=== PATIENT | female | born 1945 | race Caucasian/White ===

== ENCOUNTER 2017-12-28 10:54 | Emergency (ER) | payer MEDICARE, OTHER ==
[~2017-12-28] VITALS: Ht 162.6 cm; Wt 61.2 kg
[~2017-12-28 10:54] MED LIST: ACET325 PO; ASCO500 PO; CODLIVC PO; Calcium 500 MG1 EACH PO; DIPH50 PO; DOCU100 PO; NATOKINASE; OXYACE5T PO; OXYC5 PO; PROM25 PO; Vitamin B Comple1 EA PO; XARELTO10 MG PO
[2017-12-28 11:58] LABS: Source, Urine Voided
[2017-12-28 12:01] LABS: Bilirubin, Urine Neg (Neg); Blood, Urine Neg (Neg); Glucose Qualitative, Urine Neg (Neg); Ketones, Urine Neg (Neg); Leukocyte Esterase, Urine Neg (Neg); Nitrite, Urine Neg (Neg); Protein, Urine Neg (Neg); Urobilinogen, Urine NORM (Normal)
[2017-12-28 12:06] LABS: BASOPHILS ABSOLUTE AUTO 0.03 K/mm3 (0.00-0.23); BASOPHILS PERCENT AUTO 1 % (0-2); EOSINOPHILS ABSOLUTE AUTO 0.11 K/mm3 (0.00-0.68); EOSINOPHILS PERCENT AUTO 2 % (0-6); Hematocrit 36.4 % (33.0-51.0); IMMATURE GRAN ABSOLUTE AUTO 0.01 K/mm3 (0.00-0.10); IMMATURE GRAN PERCENT AUTO 0 % (0-1); LYMPHOCYTES ABSOLUTE AUTO 2.01 K/mm3 (0.84-5.20); LYMPHOCYTES PERCENT AUTO 40 % (21-46); MONOCYTES ABSOLUTE AUTO 0.43 K/mm3 (0.16-1.47); MONOCYTES PERCENT AUTO 8 % (4-13); Mean Corpuscular HGB 30.3 pg (26.0-34.0); Mean Corpuscular Volume 92 fL (80-100); NEUTROPHILS PERCENT AUTO 49 % (41-73); Platelet Count 238 K/mm3 (150-400); RDW Coefficient Variation 12.7 % (11.7-14.2); RDW Standard Deviation 43.2 fL (35.1-46.3); Red Blood Cell Count 3.96 M/mm3 (3.80-5.20); White Blood Cell Count 5.09 K/mm3 (4.00-11.30)
[2017-12-28 12:15] LABS: Color, Urine Yellow (P-Yellow)
[2017-12-28 12:16] LABS: Appearance, Urine Clear (Clear)
[2017-12-28 12:20] LABS: Alanine Aminotransfer (ALT/SGP 12 U/L (12-78); Albumin, Blood 2.9 g/dL (3.4-5.0); Albumin/Globulin Ratio 0.6 (0.8-1.8); Alk Phos 101 U/L (50-136); Anion Gap 7 mmol/L (6-16); Aspartate Aminotrans (AST/SGOT 19 U/L (12-37); Bilirubin, Total 0.6 mg/dL (0.1-1.0); Blood Urea Nitrogen 12 mg/dL (8-24); Bun/Creatinine Ratio 19.6 (12.0-20.0); CO2, Blood 26 mmol/L (21-32); Calcium, Blood 9.1 mg/dL (8.5-10.1); Chloride, Blood 106 mmol/L (98-108); Creatinine, Blood 0.61 mg/dL (0.40-1.00); Globulin, Blood 4.7 g/dL (2.2-4.0); Glomerular Filtration Rate >60 (60-); Glucose, Blood 84 mg/dL (70-99); Potassium, Blood 3.8 mmol/L (3.5-5.5); Sodium, Blood 139 mmol/L (136-145); Total Protein, Blood 7.6 g/dL (6.4-8.2)
[2017-12-28] MEDS ORDERED: Norco 5-325 Ta1 EACH PO (13:58)
== END 2017-12-28 14:14 | disposition home or self-care (01) ==
LOC: ER 10:54
PROVIDERS: Emergency Medicine
DX: M47.896 Other spondylosis, lumbar region (principal); Z88.5 Allergy status to narcotic agent; Z79.899 Other long term (current) drug therapy; F17.200 Nicotine dependence, unspecified, uncomplicated
CPT/HCPCS: 36415; 72100; 80053; 81003; 85025; 99283-25

== ENCOUNTER 2018-08-18 15:50 | Inpatient (IN) | payer MEDICARE, OTHER ==
[~2018-08-18] VITALS: Ht 177.8 cm; Wt 65.6 kg
[~2018-08-18 15:50] MED LIST changes: +Norco 5-325 Ta1 EACH PO
[2018-08-18 17:00] LABS: BASOPHILS ABSOLUTE AUTO 0.01 K/mm3 (0.00-0.23); BASOPHILS PERCENT AUTO 0 % (0-2); EOSINOPHILS PERCENT AUTO 0 % (0-6); Hematocrit 36.5 % (33.0-51.0); Hemoglobin 11.5 g/dL (11.5-16.0); IMMATURE GRAN ABSOLUTE AUTO 0.01 K/mm3 (0.00-0.10); IMMATURE GRAN PERCENT AUTO 0 % (0-1); LYMPHOCYTES ABSOLUTE AUTO 0.76 K/mm3 (0.84-5.20); LYMPHOCYTES PERCENT AUTO 11 % (21-46); MONOCYTES ABSOLUTE AUTO 0.48 K/mm3 (0.16-1.47); MONOCYTES PERCENT AUTO 7 % (4-13); Mean Corpuscular HGB 30.7 pg (26.0-34.0); Mean Corpuscular HGB Conc 31.5 g/dL (31.5-36.5); Mean Corpuscular Volume 97 fL (80-100); NEUTROPHILS ABSOLUTE AUTO 6.01 K/mm3 (1.96-9.15); NEUTROPHILS PERCENT AUTO 83 % (41-73); Platelet Count 212 K/mm3 (150-400); RDW Standard Deviation 46.5 fL (35.1-46.3); Red Blood Cell Count 3.75 M/mm3 (3.80-5.20); White Blood Cell Count 7.27 K/mm3 (4.00-11.30)
[2018-08-18] MEDS ORDERED: TRAM50 PO (17:14)
[2018-08-18] MEDS ORDERED: NORT25 PO (17:14)
[2018-08-18] MEDS ORDERED: Forteo2.4 ML SQ (17:14)
[2018-08-18 17:34] LABS: Alanine Aminotransfer (ALT/SGP 16 U/L (12-78); Albumin, Blood 3.1 g/dL (3.4-5.0); Albumin/Globulin Ratio 0.6 (0.8-1.8); Alk Phos 84 U/L (50-136); Anion Gap 7 mmol/L (6-16); Aspartate Aminotrans (AST/SGOT 20 U/L (12-37); Bilirubin, Total 0.6 mg/dL (0.1-1.0); Blood Urea Nitrogen 19 mg/dL (8-24); Bun/Creatinine Ratio 28.8 (12.0-20.0); CO2, Blood 28 mmol/L (21-32); Calcium, Blood 8.8 mg/dL (8.5-10.1); Chloride, Blood 102 mmol/L (98-108); Creatinine, Blood 0.66 mg/dL (0.40-1.00); Globulin, Blood 5.1 g/dL (2.2-4.0); Glomerular Filtration Rate >60 (60-); Glucose, Blood 143 mg/dL (70-99); Potassium, Blood 3.8 mmol/L (3.5-5.5); Sodium, Blood 137 mmol/L (136-145); Total Protein, Blood 8.2 g/dL (6.4-8.2); Troponin I 0.156 ng/mL (0.000-0.040)
[2018-08-18] MEDS ORDERED: VITAMIN D50000 UNIT PO (19:08)
[2018-08-18] MEDS ORDERED: Hair, Skin & N1 EACH PO (19:08)
[2018-08-18] MEDS ORDERED: Melatonin5 M1 PO (19:08)
--- NOTE | 2018-08-18 22:15 | NUR ---
PT ARRIVAL. PT IS ADMITTED DUE TO RESP FAILURE W/HYPOXIA, SHE IS ON 4 L NC AT 96%. PT ARRIVED ON UNIT AT 2202 VIA GURNEY, PT WAS ABLE TO SELF TRANSFER FROM GURNEY TO BED, HOWEVER, THIS CAUSED HER RESPIRATORY DISTRESS, IT IS UNKNOWN IF HER O2 STATS DROPPED BUT HER RESPIRATION RATE INCREASED, ACCESSORY MUSCLES WERE USED, SHE BECAME PALE AND STARTED TO PURSE LIP BREATH. O2 WAS INCREASED AND PT RECOVERED WELL. TELE WAS PLACED, NSR IN THE 80'S PER [employer] WORK[employer], PT'S BP 150/72. PT HAS 1+ EDEMA TO HER BILATERAL FEET, GILMA HOSE PER ORDERS PLACED. L/S DIM T/O AND COARSE IN THE BASES. RR 24, EVEN AND SLIGHTLY LABORED. BT PRESENT AND HYPOACTIVE, ABD IS SOFT AND NONTENDER TO PALP. PT'S SKIN IS C/D/I. PT HAS OCC INCONT OF BLADDER. PT STATES THAT SHE USES O2 AT HOME THAT SHE BUYS FROM [employer], SHE SAID SHE HAS BEEN OUT OF IT LATELY BECAUSE SHE CANNOT BUY ANY CANNULAS W/O A ORDER. PT STATES THAT SHE DOES NOT HAVE A PCP DUE TO "NOT BEING ABLE TO FIND ONE THAT TAKES MEDICARE." BUT SHE SEES A RHUMATOLOGIST IN [place]. SHE SAID SHE HAS NEVER HAD A DOCTOR TELL HER SHE NEEDS O2 BUT SHE FEELS BETTER WHEN SHE USES IT.
[2018-08-19 00:10] LABS: Source, Urine Clean Catch
[2018-08-19 00:24] LABS: Bilirubin, Urine Neg (Neg); Blood, Urine 1+ (Neg); Glucose Qualitative, Urine Neg (Neg); Ketones, Urine 1+ (Neg); Leukocyte Esterase, Urine 3+ (Neg); Nitrite, Urine Pos (Neg); Protein, Urine 2+ (Neg); Specific Gravity, Urine 1.025 (1.003-1.022); Urobilinogen, Urine NORM (Normal)
[2018-08-19 00:33] LABS: Appearance, Urine Hazy (Clear); Color, Urine Yellow (P-Yellow)
[2018-08-19 00:34] LABS: Bacteria Many /hpf; Red Blood Cells, Urine 0-2 /hpf (0-2); Squamous Epithelial Cells Mod /hpf (Few); White Blood Cells, Urine TNTC /hpf (0-5)
[2018-08-19 04:13] LABS: BASOPHILS ABSOLUTE AUTO 0.01 K/mm3 (0.00-0.23); BASOPHILS PERCENT AUTO 0 % (0-2); EOSINOPHILS PERCENT AUTO 0 % (0-6); Hematocrit 36.1 % (33.0-51.0); IMMATURE GRAN ABSOLUTE AUTO 0.01 K/mm3 (0.00-0.10); IMMATURE GRAN PERCENT AUTO 0 % (0-1); LYMPHOCYTES ABSOLUTE AUTO 0.54 K/mm3 (0.84-5.20); LYMPHOCYTES PERCENT AUTO 13 % (21-46); MONOCYTES PERCENT AUTO 2 % (4-13); Mean Corpuscular HGB 30.4 pg (26.0-34.0); Mean Corpuscular HGB Conc 30.5 g/dL (31.5-36.5); Mean Platelet Volume 11.1 fL (9.1-12.4); NEUTROPHILS ABSOLUTE AUTO 3.58 K/mm3 (1.96-9.15); NEUTROPHILS PERCENT AUTO 85 % (41-73); Platelet Count 195 K/mm3 (150-400); RDW Standard Deviation 48.3 fL (35.1-46.3); Red Blood Cell Count 3.62 M/mm3 (3.80-5.20); White Blood Cell Count 4.24 K/mm3 (4.00-11.30)
[2018-08-19 04:21] LABS: Mean Corpuscular Volume 100 fL (80-100)
[2018-08-19 04:34] LABS: Anion Gap 8 mmol/L (6-16); Blood Urea Nitrogen 16 mg/dL (8-24); Bun/Creatinine Ratio 29.1 (12.0-20.0); CO2, Blood 28 mmol/L (21-32); Calcium, Blood 8.9 mg/dL (8.5-10.1); Chloride, Blood 103 mmol/L (98-108); Creatinine, Blood 0.55 mg/dL (0.40-1.00); Glomerular Filtration Rate >60 (60-); Glucose, Blood 151 mg/dL (70-99); Potassium, Blood 3.8 mmol/L (3.5-5.5); Sodium, Blood 139 mmol/L (136-145); Troponin I 0.128 ng/mL (0.000-0.040)
[2018-08-19 05:18] LABS: Adenovirus Not Detected (NOT DETECT); Bordetella pertussis Not Detected (NOT DETECT); Chlamydophila pneumoniae Not Detected (NOT DETECT); Coronavirus 229E Not Detected (NOT DETECT); Coronavirus HKU1 Not Detected (NOT DETECT); Coronavirus NL63 Not Detected (NOT DETECT); Coronavirus OC43 Not Detected (NOT DETECT); Human Metapneumovirus Not Detected (NOT DETECT); Human Rhinovirus/Enterovirus Not Detected (NOT DETECT); Influenza A Not Detected (NOT DETECT); Influenza A/2009-H1 Not Detected (NOT DETECT); Influenza A/H1 Not Detected (NOT DETECT); Influenza A/H3 Not Detected (NOT DETECT); Influenza B Not Detected (NOT DETECT); Mycoplasma pneumoniae Not Detected (NOT DETECT); Parainfluenza Virus 1 Not Detected (NOT DETECT); Parainfluenza Virus 2 Not Detected (NOT DETECT); Parainfluenza Virus 3 Not Detected (NOT DETECT); Parainfluenza Virus 4 Not Detected (NOT DETECT); Respiratory Syncytial Virus Not Detected (NOT DETECT)
--- NOTE | 2018-08-19 06:33 | NUR ---
SHIFT SUMMARY. NO ACUTE CHANGES NOTED THIS SHIFT. PT HAS NOT USED THE BIPAP SINCE ADMIT TO THE UNIT. PT ARRIVED ON 4 L NC AND IS CURRENTLY ON 2L NC W/O2 STATS AT 94%. PT IS A SBA W/FWW TO THE BATHROOM. PT HAS BEEN FEBRILE AT 99.5-100.3, PT WAS MEDICATED W/TYLENOL PER EMAR W/GOOD RESULTS. PT'S VS HAVE BEEN STABLE OTHERWISE. PT DENIES ANY CHEST PAIN/PRESSURE, N/V AND IS SOB W/ACTIVITY. CALL LIGHT IN REACH, BED IS LOCKED AND LOW WITH BED ALARM ON DUE TO SLIGHT CONFUSION. WILL CONTINUE TO MONITOR UNTIL REPORT IS GIVEN TO ONCOMING RN.
--- NOTE | 2018-08-19 07:44 | NUR ---
RECEIVED REPORT FROM JUANA ANGELES, AND ASSUMED CARE OF PT.
--- NOTE | 2018-08-19 09:20 | NUR ---
ECHO AT BEDSIDE.
--- NOTE | 2018-08-19 10:59 | NUR ---
echocardiogram completed
--- NOTE | 2018-08-19 16:34 | NUR ---
NURSING SUMMARY ALERT, ORIENTED WITH INTERMITTENT CONFUSION AND FORGETFULNESS. SR ON MONITOR WITH PAC'S, VSS. LUNGS COARSE/DIMINISHED, 2L O2 NC, DYSPNEA WITH EXERTION, ON CONTINUOUS PULSE OX. CALLS APPROPRIATELY FOR ASSISTANCE TO THE BATHROOM, BED ALARM ENGAGED BUT HAS NOT ATTEMPTED TO GET OUT OF BED WITHOUT HELP. VOIDS PER BATHROOM. REQUIRE ONE PERSON ASSISTANCE WITH AMBULATION, USES THE WALKER. TOLERATING A REGULAR DIET. GILMA HOSE IN PLACE. ECHO DONE AT THE BEDSIDE. AWAITING RESULTS. TROPONIN ELEVATED BUT TRENDING DOWN.
--- NOTE | 2018-08-19 19:30 | NUR ---
PM NOTE. ASSUMED CARE OF PT APROX 1900, PT IS A&O BUT CONFUSED AND FORGETFUL AT TIMES. PT TOLD THIS RN THAT SHE WAS UPSET HER SISTER ANN WAS TOLD THAT SHE HAD PNA AND SHE WAS NOT TOLD THAT BY THE DOCTOR, PT ALSO STATED THAT SHE DID NOT GIVE PERMISSION FOR STAFF TO TALK WITH HER SISTER. WHEN THIS RN TOLD THE PT THAT SHE HAD SIGNED A AMISH FORM STATING WE COULD SPEAK WITH HER SISTER ANN PT STATED "WELL I TOLD THAT GIRL LAST NIGHT THAT THEY COULD ONLY SPEAK WITH ANN IF I WAS NOT AVAILABLE, I HAVE BEEN AVAILABLE ALL DAY!" THIS RN WAS THE RN THAT HELPED THE PT FILL OUT THE AMISH FORM, AND EXPLAINED TO THE PT THAT SHE HAD NEVER SAID THAT TO THIS RN OR IT WOULD HAVE BEEN NOTED AND PASSED ON. PT THEN STATED THAT SHE DID NOT REMEMBER IT WAS THIS RN THAT HAD HELPED HER FILL THE FORM OUT, THIS RN OFFERED TO CHANGE THE FORM TO ENSURE THAT HER WISHES WERE MET, PT STATED: "OH NO NO NO, YOU DON'T HAVE TO DO THAT, I WAS JUST UPSET THAT THE DOCTOR AND NURSES WERE TELLING HER STUFF THEY WERE NOT TELLING ME." THIS RN REVIWED THE DOCTOR'S AND NURSES NOTES, NO MENTION OF PNA WAS FOUND, PT'S CHEST XRAY DID NOT STATE PNA WAS SEEN. PT WAS TOLD THIS INFORMATION, IT IS NOT CLEAR WHERE THE PT'S SISTER HEARD THE PT HAD PNA. THIS RN OFFERED AGAIN TO CHANGE THE PT'S AMISH, PT REFUSED. PT'S HRR IN THE 80'S, BP 116/62. PT HAS 1+ EDEMA TO BILAT FEET, GILMA HOSE IN PLACE. L/S COARSE AND DIM T/O BUT IMPROVED, PT IS CURRENTLY ON 2 L NC W/O2 STATS AT 95%. BT PRESENT AND HYPERACTIVE, ABD IS SOFT AND NONTENDER TO PALP. CALL LIGHT IN REACH, BED IS LOCKED AND LOW WILL CONTINUE TO MONITOR.
--- NOTE | 2018-08-20 05:35 | NUR ---
SHIFT SUMMARY. NO ACUTE CHANGES NOTED THIS SHIFT. PT HAS BEEN FEBRILE AND TREATED WITH TYLENOL PER EMAR W/GOOD RESULTS. VS HAVE BEEN STABLE OTHERWISE. PT DENIES ANY CHEST PAIN/PRESSURE OR N/V. PT IS SOB W/ACTIVITY AND IS CURRENTLY ON 2L NC WITH O2 STATS >90%. PT HAS BEEN UP W/FWW AND 1 ASSIST TO THE BATHROOM, PT WAS ENCOURAGED TO BE MORE ACTIVE AND UP IN CHAIR FOR MEALS ETC TO PREVENT DECONDITIONING. CALL LIGHT IN REACH, BED IS LOCKED AND LOW W/BED ALARM ON, WILL CONTINUE TO MONITOR UNTIL REPORT IS GIVEN TO ONCOMING RN.
--- NOTE | 2018-08-20 10:51 | NUR ---
AM NOTE PT ALERT TO PERSON AND PLACE. DISORIENTED TO TIME. SHE THINKS SHE'S BEEN HERE FOR A MONTH AND IT'S JULY. DOESN'T REORIENT WELL. SHE IS FAIRLY [place]. SHE WANTED HELP FILLING OUT HER MENU BECAUSE SHE DIDN'T HAVE HER GLASSES AND COULN'T REALLY READ IT. STARTED READING THE CHOICES BUT SHE DIDN'T BELIEVE THAT THIS NURSE WAS ACTUALLY READING IT. SHE THOUGHT I WAS MAKING IT UP. SHE TOOK THE MENU BACK. STILL NOT ABLE TO READ IT. VSS. DIFFICULT TO REASSURE HER THAT HER MORNING MEDICATIONS WERE CORRECT. SHE COULDN'T REMEMBER WHAT SHE TAKES AND DOUBTED THAT WHAT THE PILLS REALLY WERE. SHE WAS FINE WITH THE LOVENOX. DR MORALES HAS ROUNDED ON PT. NEW PRDERS FOR ANTIBIOTICS RECEIVED. CONTINUE POT.
--- NOTE | 2018-08-20 19:50 | NUR ---
PM NOTE. ASSUMED CARE OF PT APROX 1900, PT IS A&O BUT IS CONFUSED AT TIMES, PT THINKS SHE HAS BEEN HER FOR 1 MONTH. PT'S HRR IN THE 80'S, PT'S BP 113/61, TRACE EDEMA IS NOTED TO THE PT'S BLLE. PT'S L/S HAVE INCREASED COARSENESS FROM PREVIOUS SHIFT, PT'S O2 LEVELS DROP SEVERELY WITH ACTIVITY. PT AMBULATED TO THE BATHROOM AND BACK, AFTER STAFF LEFT PT HAD REMOVED NC AND HER STATS HAD DROPPED, PT WAS BUMPED FROM 2L NC TO 5L NC AND IT TOOK SEVERAL MINUTES FOR HER TO RECOVER. BT PRESENT AND HYPERACTIVE, ABD IS SOFT AND NONTENDER TO PALP. PT IS FEBRILE AT 101.9, PT WAS MEDICATED W/TYLENOL PER EMAR. CALL LIGHT IN REACH, BED IS LOCKED AND LOW WILL CONTINUE TO MONITOR.
[2018-08-21 05:22] LABS: BASOPHILS PERCENT AUTO 0 % (0-2); EOSINOPHILS PERCENT AUTO 0 % (0-6); Hematocrit 31.4 % (33.0-51.0); Hemoglobin 9.6 g/dL (11.5-16.0); IMMATURE GRAN ABSOLUTE AUTO 0.01 K/mm3 (0.00-0.10); IMMATURE GRAN PERCENT AUTO 0 % (0-1); LYMPHOCYTES ABSOLUTE AUTO 0.87 K/mm3 (0.84-5.20); LYMPHOCYTES PERCENT AUTO 20 % (21-46); MONOCYTES ABSOLUTE AUTO 0.16 K/mm3 (0.16-1.47); MONOCYTES PERCENT AUTO 4 % (4-13); Mean Corpuscular HGB 29.9 pg (26.0-34.0); Mean Corpuscular HGB Conc 30.6 g/dL (31.5-36.5); Mean Corpuscular Volume 98 fL (80-100); Mean Platelet Volume 12.4 fL (9.1-12.4); NEUTROPHILS ABSOLUTE AUTO 3.28 K/mm3 (1.96-9.15); NEUTROPHILS PERCENT AUTO 76 % (41-73); Platelet Count 172 K/mm3 (150-400); RDW Coefficient Variation 13.1 % (11.7-14.2); RDW Standard Deviation 46.1 fL (35.1-46.3); Red Blood Cell Count 3.21 M/mm3 (3.80-5.20); White Blood Cell Count 4.32 K/mm3 (4.00-11.30)
--- NOTE | 2018-08-21 05:36 | NUR ---
SHIFT SUMMARY PT TRANSFERRED TO ROOM APPROX 0200. SLIGHT CONFUSION THOUGHT IT WAS AFTERNOON AND WAS READING HER MAGAZINE. REORIENTED HER TO CORRECT TIME AND SHE SAID SHE WOULD GO TO SLEEP. SHE WAS ABLE TO DOZE OFF AFTER THAT AND SLEEP THROUGH REST OF NIGHT. BED ALARM IN USE. CALL LIGHT IN REACH
[2018-08-21 05:47] LABS: Anion Gap 4 mmol/L (6-16); Blood Urea Nitrogen 19 mg/dL (8-24); CO2, Blood 32 mmol/L (21-32); Calcium, Blood 8.5 mg/dL (8.5-10.1); Chloride, Blood 100 mmol/L (98-108); Creatinine, Blood 0.61 mg/dL (0.40-1.00); Glomerular Filtration Rate >60 (60-); Glucose, Blood 81 mg/dL (70-99); Potassium, Blood 4.6 mmol/L (3.5-5.5); Sodium, Blood 136 mmol/L (136-145)
--- NOTE | 2018-08-21 15:02 | NUR ---
Per admit trigger, I met with Suzette to discuss Advanced Directives. We had an easy rapport and she was talkative. Suzette does not appear to have a grasp on her chronic disease prognosis and path. She was not certain why she was here or why her breathing has "suddenly" become a problem. She also wanted to know why she was on antibiotics. She admits she has been a smoker for over 55 years, but "I quit last week." Certainly, Suzette would benefit from a clear, understandable explaination of her illness and its path. Regardless, Suzette did not see a need for an Advanced Directive. She is not and tells me her sister will know what to do if anything happens. I charlie remain available.
--- NOTE | 2018-08-21 19:11 | NUR ---
PATIENT A/OX3, FORGETFUL AT TIMES. UP WITH FWW AND SBA. CALLS APPROPRIATELY FOR ASSISTANCE. TRAMODOL AND TYLENOL GIVEN X1 THIS SHIFT FOR HEADACHE/BACK PAIN. 20G IV TO L FA WNL AND SL. TOLERATING SMALL AMOUNTS OF REGULAR DIET. VOIDING IN RESTROOM WITH OCCASIONAL INCONITNENCE. VSS THIS SHIFT. RT TX SCHEDULED. 3LO2 TO MAINTAIN SATS. NO ACUTE CHANGES THIS SHIFT.
[2018-08-22 04:54] LABS: BASOPHILS PERCENT AUTO 0 % (0-2); EOSINOPHILS PERCENT AUTO 0 % (0-6); Hematocrit 31.1 % (33.0-51.0); Hemoglobin 9.5 g/dL (11.5-16.0); IMMATURE GRAN ABSOLUTE AUTO 0.01 K/mm3 (0.00-0.10); IMMATURE GRAN PERCENT AUTO 0 % (0-1); LYMPHOCYTES ABSOLUTE AUTO 1.09 K/mm3 (0.84-5.20); LYMPHOCYTES PERCENT AUTO 25 % (21-46); MONOCYTES ABSOLUTE AUTO 0.15 K/mm3 (0.16-1.47); MONOCYTES PERCENT AUTO 3 % (4-13); Mean Corpuscular HGB 29.4 pg (26.0-34.0); Mean Corpuscular HGB Conc 30.5 g/dL (31.5-36.5); Mean Corpuscular Volume 96 fL (80-100); Mean Platelet Volume 11.5 fL (9.1-12.4); NEUTROPHILS PERCENT AUTO 71 % (41-73); Platelet Count 184 K/mm3 (150-400); RDW Coefficient Variation 12.9 % (11.7-14.2); RDW Standard Deviation 45.6 fL (35.1-46.3); Red Blood Cell Count 3.23 M/mm3 (3.80-5.20); White Blood Cell Count 4.35 K/mm3 (4.00-11.30)
[2018-08-22 05:26] LABS: Anion Gap 4 mmol/L (6-16); Blood Urea Nitrogen 13 mg/dL (8-24); Bun/Creatinine Ratio 25.9 (12.0-20.0); CO2, Blood 33 mmol/L (21-32); Calcium, Blood 8.5 mg/dL (8.5-10.1); Chloride, Blood 100 mmol/L (98-108); Glomerular Filtration Rate >60 (60-); Glucose, Blood 77 mg/dL (70-99); Potassium, Blood 4.6 mmol/L (3.5-5.5); Sodium, Blood 137 mmol/L (136-145)
--- NOTE | 2018-08-22 06:29 | NUR ---
SHIFT SUMMARY PT SLEPT WELL T/O NIGHT. AOX3, UNAWARE OF DATE & IS FORGETFUL @TIMES, HOWEVER FOLLOWS DIRECTIONS & ANSWERS YES/NO QUESTIONS APPROPRIATELY. PT DENIES N/V. REPORTS 12/20 BACK PAIN & WAS MEDICATED 1X W/ULTRAM PER ORDERS. PT DENIES SOB @REST BUT REPORTS SHE FEELS SOB W/AMBULATION OR EXERTION @TIMES. SPO2 >90% ON 3L NC, BREATHING IS E/U. CALL LIGHT IS WITHIN REACH & PT USES APPROPRIATELY. WILL CONT TO MONITOR UNTIL DAY SHIFT RN ASSUMES CARE.
--- NOTE | 2018-08-22 18:40 | NUR ---
NO ACUTE CHANGES THIS SHIFT. PATIENT UP WITH FWW AND SBA TO RESTROOM. TOLERATING REGULAR DIET. VSS THIS SHIFT. 20G IV TO L FA WNL AND SL BETWEEN ABX. TRAMODOL GIVEN X1 THIS SHIFT FOR BACK PAIN. PATIENT IS CALM AND COOPERATIVE WITH CARE AND CALLS APPROPRIATELY FOR ASSISTANCE.
--- NOTE | 2018-08-23 06:18 | NUR ---
SUMMARY: A/OX4, CALLS APPROPRIATELY AND SPECIFIES NEEDS. SHE SLEPT THE MAJORITY OF THE NOCTE W/O COMPLAINTS AND WAS SBA W/FWW TO TOILET. ATTENDS CHANGED FOR OCCASIONAL URGE INCONTINENCE. TRAMADOL RECIEVED AT HS FOR TOLERABLE CONTROL OF LOWER BACK/HIP PAIN. RT PROVIDED BX TX'S AT HS BUT HELD THEM T/O NOCTE D/T PT SLEEPING AND NOT WANTING TO BE WOKE UP. SHE REPOSITIONS SELF IN BED AND TOLERATEDS PILLS WHOLE ADN REFULAR DIET. NO ACUTE CHANGES, VSS/AFEBRILE. WILL MONITOR AND REPORT TO DAY RN.
--- NOTE | 2018-08-23 19:25 | NUR ---
SHIFT SUMMARY PT UP TO BATHROOM 1 PERSON ASSIST WITH FWW. DENIES PAIN OR RESP DISTRESS TODAY. BIOX WAS IN LOW 80'S THIS MORNING WHEN O2 FOUND OFF. TOOK O2 INCREASED TO 4L/M TO GET OXYGENATION UP TO 90'S. HAS SLOWLY BEEN LOWERED BACK TO 2L/M. DOZING ON AND OFF THROUGH DAY.
--- NOTE | 2018-08-24 04:05 | NUR ---
SHIFT SUMMARY PT IS A&O, RESTING QUIETLY WATCHING TV DURING SHIFT REPORT. NO C/O. ADMITTED FOR RESPIRATORY FAILURE AND HYPOXIA. CURRENT SMOKER AND POSSIBLE LUPUS. LUNGS T/O DIMINISHED WITH COARSE CRACKLES AND EXP WHEEZES. HX OF COPD. REQUESTED ULTRAM FOR R HIP AND BACK PAIN AT HS. SBA TO BTHRM. REPORTS LIVING ALONE BUT CLOSE TO FAMILY. POSSIBLE D/C TODAY. NO S/SX OF DISTRESS NOTED OR REPORTED. CALL LT IN REACH.
[2018-08-24] MEDS ORDERED: ALBU2.5V5 INH (13:34)
[2018-08-24] MEDS ORDERED: LEVFLO500 PO (13:35)
[2018-08-24] MEDS ORDERED: DULERA 200 MCG/13 GM INH (13:36)
[2018-08-24] MEDS ORDERED: PRED10 PO (13:38)
--- NOTE | 2018-08-24 16:04 | NUR ---
DISCHARGE DISCHARGE INSTRUCTIONS, MEDICATION LIST AND FOLLOW UP APPOINTMENT REVIEWED WITH PT. QUESTIONS/CONCERNS ANSWERED. PT VERBALLY INDICATED UNDERSTANDING OF ALL INSTRUCTIONS RECEIVED. PORTABLE O2 BY SUAD DELIVERED, SUAD DEMONSTRATED USE OF O2 TANK AND SET APPT TIME TO MEET HER AT THIS HOUSE FOR CONCENTATOR DELIVERY. PT TRANSPORTED OUT VIA W/C WITH [facility] [employer]. FRIEND OF PT GIVING HER A RIDE HOME
== END 2018-08-24 15:59 | disposition home or self-care (01) | DRG 189 ==
LOC: ER 15:50 → PCU 15:51 → MEDS 22:09 → PCU 08-19 08:24 → MEDS 08-21 02:05
PROVIDERS: Physician Assistant; ADMIT Hospitalist
PROC: 5A09357 Assistance with Respiratory Ventilation, Less than 24 Consecutive Hours, Continuous Positive Airway Pressure (ICD-10-PCS; principal; 2018-08-18)
DX: J96.01 Acute respiratory failure with hypoxia (principal); J44.1 Chronic obstructive pulmonary disease with (acute) exacerbation; N39.0 Urinary tract infection, site not specified; R65.10 Systemic inflammatory response syndrome (SIRS) of non-infectious origin without acute organ dysfunction; F17.210 Nicotine dependence, cigarettes, uncomplicated; M32.9 Systemic lupus erythematosus, unspecified; M81.0 Age-related osteoporosis without current pathological fracture; M19.90 Unspecified osteoarthritis, unspecified site; R74.8 Abnormal levels of other serum enzymes
CPT/HCPCS: 36415; 71045; 80048; 80053; 81001; 83605; 84145; 84484; 85025; 85651; 87040; 87086; 87486; 87581; 87633; 87798; 93005; 93010; 93306; 94640; 94644; 94660; 94760; 94761; 94762; 96365; 96366; 96367; 96372; 96375; 96376; 99285-25; G0378; J0456; J0696; J1650; J1956; J2920; J7050

== ENCOUNTER 2018-12-14 22:46 | Emergency (ER) | payer MEDICARE, OTHER ==
[~2018-12-14] VITALS: Ht 167.6 cm; Wt 70.3 kg
[~2018-12-14 22:46] MED LIST changes: +ALBU2.5V5 INH; +DULERA 200 MCG/13 GM INH; +Forteo2.4 ML SQ; +Hair, Skin & N1 EACH PO; +LEVFLO500 PO; +Melatonin5 M1 PO; +NORT25 PO; +PRED10 PO; +TRAM50 PO; +VITAMIN D50000 UNIT PO
[2018-12-15 02:04] LABS: BASOPHILS ABSOLUTE AUTO 0.02 K/mm3 (0.00-0.23); BASOPHILS PERCENT AUTO 0 % (0-2); EOSINOPHILS ABSOLUTE AUTO 0.02 K/mm3 (0.00-0.68); EOSINOPHILS PERCENT AUTO 0 % (0-6); Hematocrit 38.6 % (33.0-51.0); Hemoglobin 12.1 g/dL (11.5-16.0); IMMATURE GRAN ABSOLUTE AUTO 0.03 K/mm3 (0.00-0.10); IMMATURE GRAN PERCENT AUTO 0 % (0-1); LYMPHOCYTES ABSOLUTE AUTO 2.03 K/mm3 (0.84-5.20); LYMPHOCYTES PERCENT AUTO 25 % (21-46); MONOCYTES ABSOLUTE AUTO 0.47 K/mm3 (0.16-1.47); MONOCYTES PERCENT AUTO 6 % (4-13); Mean Corpuscular HGB 29.8 pg (26.0-34.0); Mean Corpuscular HGB Conc 31.3 g/dL (31.5-36.5); Mean Corpuscular Volume 95 fL (80-100); NEUTROPHILS ABSOLUTE AUTO 5.68 K/mm3 (1.96-9.15); NEUTROPHILS PERCENT AUTO 69 % (41-73); RDW Coefficient Variation 12.6 % (11.7-14.2); RDW Standard Deviation 43.8 fL (35.1-46.3); Red Blood Cell Count 4.06 M/mm3 (3.80-5.20); White Blood Cell Count 8.25 K/mm3 (4.00-11.30)
[2018-12-15 02:08] LABS: Mean Platelet Volume 11.2 fL (9.1-12.4); Platelet Count 175 K/mm3 (150-400)
[2018-12-15 02:17] LABS: Anion Gap 8 mmol/L (6-16); Blood Urea Nitrogen 19 mg/dL (8-24); Bun/Creatinine Ratio 24.1 (12.0-20.0); CO2, Blood 23 mmol/L (21-32); Calcium, Blood 8.8 mg/dL (8.5-10.1); Chloride, Blood 110 mmol/L (98-108); Creatinine, Blood 0.79 mg/dL (0.40-1.00); Glomerular Filtration Rate >60 (60-); Glucose, Blood 108 mg/dL (70-99); Sodium, Blood 141 mmol/L (136-145)
== END 2018-12-15 03:14 | disposition short-term general hospital (02) ==
LOC: ER 22:46
PROVIDERS: Emergency Medicine
DX: S72.042A Displaced fracture of base of neck of left femur, initial encounter for closed fracture (principal); V39.9XXA Occupant (driver) (passenger) of three-wheeled motor vehicle injured in unspecified traffic accident, initial encounter; Z88.5 Allergy status to narcotic agent; Z79.899 Other long term (current) drug therapy; Z79.52 Long term (current) use of systemic steroids; J44.9 Chronic obstructive pulmonary disease, unspecified; F17.200 Nicotine dependence, unspecified, uncomplicated
CPT/HCPCS: 36415; 71045; 73502; 80048; 85025; 96374; 96376; 99285-25; J3010